=== PATIENT | female | born 1945 | race Caucasian/White ===

== ENCOUNTER 2018-01-22 19:28 | Emergency (ER) | payer MEDICARE, BC, SELFPAY ==
[2018-01-22 19:30] VITALS: BP 196/64; PULSE 97; RESP 20; TEMP 36.7; O2SAT 94; BMI 47.6
--- NOTE | 2018-01-22 19:59 | RAD_ITS ---
STUDY: X-RAY - RIGHT KNEE REASON FOR EXAM: Female, 72 years old. Fall. Pain. TECHNIQUE: 4 view(s) of the knee. COMPARISON: None. FINDINGS: Normal visualized distal femur. Normal visualized proximal tibia and fibula. Normal proximal tibiofibular articulation. There is mild degenerative arthrosis of the medial femorotibial compartment. There is mild degenerative arthrosis of the lateral femorotibial compartment. Normal patellofemoral articulation. The soft tissue structures are unremarkable. RAD/Knee 4 or More Views IMPRESSION: Degenerative arthrosis. Electronically Signed: Tracey Webb MD at 20:40 EDT Tel , Service support ,
[2018-01-22] MEDS: HYDROcodone Bitartrate/Apap 5/325 Tablet PO ×2 (20:10→21:43)
--- NOTE | 2018-01-22 20:25 | RAD_ITS ---
STUDY: X-RAY - RIGHT FEMUR REASON FOR STUDY: Female, 72 years old. Fall. TECHNIQUE: Radiological exam, femur, minimum 2 views COMPARISON: None. FINDINGS: Normal visualized femur. Normal visualized soft tissue structure. RAD/Femur Min 2 Views IMPRESSION: Normal x-ray examination of the femur. Electronically Signed: Tracey Webb MD at 20:41 EDT Tel , Service support ,
--- NOTE | 2018-01-22 21:24 | ED.VISSUMM ---
- ER Visit Summary Date of Service: 01/22/18 Chief Complaint: Right knee pain History of Present Illness: The patient is a 72 F who lives in [place] and will be here for the next 3 days. She went to step up on a curb and lost her balance. She fell onto her right knee. She denies any blow to the head or loss of consciousness. No neck, back, shoulder, wrist, or hip pain. She is not on anticoagulants. Patient reports that she has a throbbing, stinging pain in her right knee that is 8 out of 10 at worst and 6 out of 10 currently. Is worsened by movement and relieved by rest. Physical Examination: Vitals: Stable. Afebrile. Neck: No vertebral tenderness. Full ROM without difficulty. Cleared by NEXUS criteria. Back: No vertebral tenderness. General: A&O x 3. NAD. Cardiovascular exam: Regular rate and rhythm, no murmur, rub or gallop. Respiratory exam: Chest nontender. No crepitus. Clear to auscultation bilaterally. No wheezes or stridor. Abdominal exam: Soft, nontender, nondistended, normal bowel sounds. No pain in RUQ or LUQ specifically. No peritoneal signs. Extremity: Abrasion over the anterior surface of her right knee just distal to the patella. She has tenderness to palpation. She has no pain with range of motion. She has no pain with axial load. She does have mild tenderness palpation over her thigh as well. Test Results: Right knee and femur x-rays show no acute disease. Emergency Department Course and Treatment: Patient was treated with [place]. She has been able to ambulate emergency department without difficulty. Treatment Plan: Patient will be discharged with [place] and Colace. Instructed to follow-up her primary care physician 1 week if not improving. Return to the emergency department for any worsening symptoms. Disposition: To home in improved and stable condition. Impression: 1. Fall. 2. Right knee pain, acute. This note was generated with [employer] dictation software. It may contain incorrect words, spelling, and punctuation that were not noted in review of the chart prior to signing ED Disposition - Plan for ED Patient: Disposition: Home or Assisted Living Chief Complaint: Lower Extremity Injury Instructions: ED Knee Pain [facility] Prescriptions: Docusate Sodium [Colace] 100 mg PO DAILY #20 capsule Hydrocodone/Acetaminophen [[place]aga 5-325 Tablet] 1 - 2 each PO 4X/DAY PRN PRN 3 Days #12 tablet PRN Reason: Pain Referrals: Doctor,Your [STAFF PHYSICIAN] - 1 Week if not improving
[2018-01-22 21:43] VITALS: BP 174/80; PULSE 89; RESP 20; O2SAT 95
== END 2018-01-22 21:44 | disposition home or self-care (01) ==
LOC: ED 20:12
PROVIDERS: Emergency Provider Emergency Medicine
DX: M25.561 Pain in right knee (principal); M19.90 Unspecified osteoarthritis, unspecified site; Z85.3 Personal history of malignant neoplasm of breast; W19.XXXA Unspecified fall, initial encounter; Y93.01 Activity, walking, marching and hiking; Y92.89 Other specified places as the place of occurrence of the external cause; Y99.8 Other external cause status
CPT/HCPCS: 73552; 73564; 99284